=== PATIENT | female | born 1980 | race Caucasian/White ===

== ENCOUNTER 2023-10-25 14:47 | Emergency (ER) | payer SELFPAY ==
[2023-10-25] MEDS ORDERED: HYDROCODONE/APAP 7.5/325 MG TAB ONE (15:38)
--- NOTE | 2023-10-25 16:27 | RAD REPORT ---
EXAM DESCRIPTION: CT Shoulder Right Wo Cont CLINICAL HISTORY: Right shoulder pain and swelling COMPARISON: None TECHNIQUE: Computed axial tomography right shoulder with coronal and sagittal reconstruction FINDINGS: No fracture or dislocation seen. No significant bone or joint abnormality noted. No significant joint effusion is seen. Soft tissues appear grossly normal. IMPRESSION: - no significant abnormality is displayed
--- NOTE | 2023-10-25 16:42 | EDPHYS ---
Physician Documentation [facility] Name: Bisi Huynh Age: 43 yrs Sex: Female : 1980 Arrival Date: 10/25/2023 Time: 14:47 Bed 9 Private MD: ED Physician Brodie Celestin HPI: 10/24 15:35 This 43 yrs old Female presents to ER via Ambulatory with complaints of Shoulder Pain. sb4 15:35 The patient or guardian complains of pain, that is acute. sb4 15:35 right shoulder and right trapezius. sb4 Historical: - Allergies: 15:14 No Known Allergies; aa5 - PMHx: 15:14 back pain; aa5 - PSHx: 15:14 back sx; aa5 - Immunization history:: Adult Immunizations unknown. - Infectious Disease History:: Denies. - Social history:: Smoking status: Patient reports the use of cigarette tobacco products. ROS: 15:36 Constitutional: Negative for fever, chills, and weight loss, sb4 15:36 MS/extremity: Positive for decreased range of motion, pain, swelling, tenderness, of the right trapezius and right shoulder, 15:36 All other systems are negative, Exam: 15:36 Constitutional: This is a well developed, well nourished patient who is awake, alert, sb4 and in no acute distress. Head/Face: Normocephalic, atraumatic. Eyes: Extra-ocular motions intact. Periorbital areas with no swelling, redness, or edema. ENT: Mucous membranes moist. Skin: Warm, dry with normal turgor. Normal color with no rashes, no lesions, and no evidence of cellulitis. MS/ Extremity: Pulses equal, no cyanosis. Neurovascular intact. Full, normal range of motion. Neuro: Awake and alert, GCS 15, oriented to person, place, time, and situation. Motor strength 5/5 in all extremities. Sensory grossly intact. Vital Signs: 15:13 BP 137 / 87; Pulse 82; Resp 18 S; Temp 97.4(TE); Pulse Ox 100% on R/A; Weight 83.91 kg aa5 (R); Height 5 ft. 2 in. (R); 16:40 BP 135 / 87; Pulse 80; Resp 18; Pulse Ox 100% on R/A; mb9 15:13 Body Mass Index 33.84 (83.91 kg, 157.48 cm) aa5 MDM: 15:12 Patient medically screened. sb4 16:41 Data reviewed: vital signs, nurses notes, radiologic studies, and as a result, I will sb4 discharge patient. Counseling: I had a detailed discussion with the patient and/or guardian regarding the historical points, exam findings, and any diagnostic results supporting the discharge/admit diagnosis, radiology results, the need for outpatient follow up, a orthopedic surgeon, to return to the emergency department if symptoms worsen or persist or if there are any questions or concerns that arise at home. 10/24 15:36 Order name: Shoulder Right Wo Cont; Complete Time: 16:30 EDMS 10/24 16:40 Order name: Sling; Complete Time: 16:41 sb4 Administered Medications: 15:42 Drug: Hydrocodone-Acetaminophen PO (7.5 mg-325 mg) 1 tabs PO once Route: PO; mb9 16:40 Follow up: Response: No adverse reaction mb9 Disposition Summary: 10/25/23 16:42 Discharge Ordered Notes: Location: Home sb4 Problem: new sb4 Symptoms: are unchanged sb4 Condition: Stable sb4 Diagnosis - Injury of other muscles, fascia and tendons at shoulder and upper arm level sb4 Followup: sb4 - With: David Anaya MD - When: As needed - Reason: Recheck today's complaints, Re-evaluation by your physician Discharge Instructions: - Discharge Summary Sheet sb4 - Shoulder Sprain sb4 Forms: - Thank You Letter sb4 - Prescription Opioid Use sb4 - Patient Portal Instructions sb4 - Leadership Thank You Letter sb4 Prescriptions: - Cyclobenzaprine 10 mg Oral Tablet - take 1 tablet ORAL route every 8 hours As needed; 30 tablet; Refills: 0, sb4 Product Selection Permitted - Tramadol 50 mg Oral Tablet - take 1 tablet ORAL route every 8 hours as needed; 12 tablet; Refills: 0, sb4 Product Selection Permitted Signatures: Dispatcher [employer] Magdalena Reyes, RN RN aa5 Gely Sanchez PA-C PAJulian sb4 Shantelle Kelsey RN RN mb9
--- NOTE | 2023-10-25 16:42 | ER ---
Nurse's Notes [facility] Name: Bisi Huynh Age: 43 yrs Sex: Female : 1980 Arrival Date: 10/25/2023 Time: 14:47 Bed 9 Private MD: Diagnosis: Injury of other muscles, fascia and tendons at shoulder and upper arm level Presentation: 10/24 15:13 Chief complaint: Patient states: right shoulder pain radiating up to neck that began aa5 yesterday. Pt states "I noticed a knot on my shoulder blade yesterday and now my shoulder is swollen". Pt denies known injury. Coronavirus screen: At this time, the client does not indicate any symptoms associated with coronavirus-19. Ebola Screen: Patient denies travel to an Ebola-affected area in the 21 days before illness onset. Initial Sepsis Screen: Does the patient meet any 2 criteria? No. Patient's initial sepsis screen is negative. Does the patient have a suspected source of infection? No. Patient's initial sepsis screen is negative. Risk Assessment: Do you want to hurt yourself or someone else? Patient reports no desire to harm self or others. Onset of symptoms was October 2023. 15:13 Method Of Arrival: Ambulatory aa5 15:13 Acuity: LESLY 3 aa5 Historical: - Allergies: 15:14 No Known Allergies; aa5 - PMHx: 15:14 back pain; aa5 - PSHx: 15:14 back sx; aa5 - Immunization history:: Adult Immunizations unknown. - Infectious Disease History:: Denies. - Social history:: Smoking status: Patient reports the use of cigarette tobacco products. Screenin:23 [facility] ED Fall Risk Assessment (Adult) History of falling in the last 3 months, mb9 including since admission No falls in past 3 months (0 pts) Confusion or Disorientation No (0 pts) Intoxicated or Sedated No (0 pts) Impaired Gait No (0 pts) Mobility Assist Device Used No (0 pt) Altered Elimination No (0 pt) Score/Fall Risk Level 0 - 2 = Low Risk Oriented to surroundings, Maintained a safe environment, Educated pt \\T\\ family on fall prevention, incl call for assistance when getting out of bed. Abuse screen: Denies threats or abuse. Nutritional screening: No deficits noted. Tuberculosis screening: No symptoms or risk factors identified. Assessment: 15:45 General: Appears in no apparent distress. Behavior is calm, cooperative. Pain: mb9 Complains of pain in right shoulder Pain radiates to right trapezius Pain currently is 9 out of 10 on a pain scale. Quality of pain is described as throbbing. Neuro: Schwartz Agitation-Sedation Scale (RASS): 0 - Alert and Calm Level of Consciousness is awake, alert, obeys commands, Oriented to person, place, time, situation, Appropriate for age. Cardiovascular: Patient's skin is warm and dry. Respiratory: Airway is patent Respiratory effort is even, unlabored, Respiratory pattern is regular, symmetrical. GI: No signs and/or symptoms were reported involving the gastrointestinal system. : No signs and/or symptoms were reported regarding the genitourinary system. EENT: No signs and/or symptoms were reported regarding the EENT system. Derm: Skin is pink, warm \\T\\ dry. Musculoskeletal: Range of motion: limited in right shoulder. 16:40 Reassessment: No changes from previously documented assessment. Patient and/or family mb9 updated on plan of care and expected duration. Pain level reassessed. Patient is alert, oriented x 3, equal unlabored respirations, skin warm/dry/pink. Vital Signs: 15:13 BP 137 / 87; Pulse 82; Resp 18 S; Temp 97.4(TE); Pulse Ox 100% on R/A; Weight 83.91 kg aa5 (R); Height 5 ft. 2 in. (R); 16:40 BP 135 / 87; Pulse 80; Resp 18; Pulse Ox 100% on R/A; mb9 15:13 Body Mass Index 33.84 (83.91 kg, 157.48 cm) aa5 ED Course: 14:51 Patient arrived in ED. im 14:55 Gely Sanchez PA-C is PHCP. sb4 14:55 Brodie Celestin MD is Attending Physician. sb4 15:13 Arm band placed on. aa5 15:14 Triage completed. aa5 15:23 Shantelle Kelsey, FINESSE is Primary Nurse. mb9 15:23 Provided Education on: press call light if needing anything. mb9 15:23 Placed in gown. Bed in low position. Call light in reach. Side rails up X 1. Client mb9 placed on continuous cardiac and pulse oximetry monitoring. NIBP monitoring applied. 15:46 No provider procedures requiring assistance completed. mb9 16:08 Shoulder Right Wo Cont In Process Unspecified. EDMS 16:40 Patient did not have IV access during this emergency room visit. mb9 16:42 David Anaya MD is Referral Physician. sb4 16:50 Sling applied to right arm. mb9 Administered Medications: 15:42 Drug: Hydrocodone-Acetaminophen PO (7.5 mg-325 mg) 1 tabs PO once Route: PO; mb9 16:40 Follow up: Response: No adverse reaction mb9 Medication: 15:23 VIS not applicable for this client. mb9 Outcome: 16:42 Discharge ordered by . sb4 16:50 Discharged to home ambulatory, with family, mb9 16:50 Condition: stable 16:50 Discharge instructions given to patient, Instructed on discharge instructions, follow up and referral plans. Demonstrated understanding of instructions, follow-up care, medications, Prescriptions given X 2, 16:50 Patient left the ED. mb9 Signatures: Dispatcher [employer] EDNJ Magdalena Guzman, RN RN [email or web address] Gely Sanchez, PA-C PA-C sb4 Shantelle Kelsey RN RN mb9 Amna March Corrections: (The following items were deleted from the chart) 15:46 15:45 Musculoskeletal: Range of motion: intact in all extremities, mb9 mb9
[2023-10-26 00:18] VITALS: BP 135/87; TEMP 97.4; O2SAT 100
== END 2023-10-25 16:50 | disposition home or self-care (01) ==
LOC: ER 14:47
DX: S46.891A Other injury of other muscles, fascia and tendons at shoulder and upper arm level, right arm, initial encounter (principal)
CPT/HCPCS: 73200; 99284